=== PATIENT | male | born 1950 | race African-American/Black ===

== ENCOUNTER 2021-04-11 09:35 | Outpatient (CLI) | payer MEDICARE, OTHER | END 2021-04-11 09:36 | disposition home or self-care (01) | LOC: CSHULT 09:35 | PROVIDERS: ATTEND Internal Medicine Nephrology | DX: I13.10 Hypertensive heart and chronic kidney disease without heart failure, with stage 1 through stage 4 chronic kidney disease, or unspecified chronic kidney disease (principal); N18.1 Chronic kidney disease, stage 1; E87.1 Hypo-osmolality and hyponatremia; N40.0 Benign prostatic hyperplasia without lower urinary tract symptoms; R80.9 Proteinuria, unspecified; N39.0 Urinary tract infection, site not specified; I25.10 Atherosclerotic heart disease of native coronary artery without angina pectoris; I73.9 Peripheral vascular disease, unspecified; J44.9 Chronic obstructive pulmonary disease, unspecified; E78.5 Hyperlipidemia, unspecified; M19.90 Unspecified osteoarthritis, unspecified site; D47.3 Essential (hemorrhagic) thrombocythemia; N28.1 Cyst of kidney, acquired | CPT/HCPCS: 76770 ==

== ENCOUNTER 2021-05-18 17:03 | Outpatient (CLI) | payer MEDICARE, OTHER | END 2021-05-18 17:04 | disposition home or self-care (01) | LOC: CSHRAD 17:03 → CSHULT 17:04 | PROVIDERS: ATTEND Internal Medicine | DX: M79.89 Other specified soft tissue disorders (principal); I82.611 Acute embolism and thrombosis of superficial veins of right upper extremity ==

== ENCOUNTER 2021-05-18 17:53 | Observation (INO) | payer OTHER, MEDICARE ==
[2021-05-18 21:04] LABS: #Eosinphils 0.1 10x3/uL (0.0-0.5); #Monocytes 0.3 10x3/uL (0.0-1.1); #Neutrophils 2.8 10x3/uL (1.5-8.4); %Basophils 0.7 % (0.0-2.0); %Eosinophils 1.2 % (0.0-6.0); %Lymphocytes 26.6 % (18.0-47.0); %Neutrophils 64.3 % (40.0-75.0); Hemoglobin 13.8 g/dL (13.5-17.5); Mean Corpuscular HGB CONC 34.1 g/dL (32.0-36.0); Mean Corpuscular Volume 108.6 fl (81.2-95.1); Mean Platelet Volume 9.9 fl (7.4-10.4); Platelet Count 183 10x3/uL (150-450); RBC Distribution Width 13.2 % (11.5-14.5); Red Blood Cell (RBC) Count 3.73 10x6/uL (4.32-5.72); White Blood Cell (WBC) Count 4.3 10x3/uL (3.5-10.5)
[2021-05-18] MEDS ORDERED: Morphine 4 MG/ML VIAL ONE (21:12)
[2021-05-18] MEDS ORDERED: Ondansetron PF 4 MG/2 ML Vial ONE (21:13)
[2021-05-18] MEDS ORDERED: Enoxaparin Sodium 60 MG/0.6 ML SYRINGE ONE (21:13)
[2021-05-18 21:15] LABS: ALT (SGPT) 12 U/L (8-55); AST (SGOT) 19 U/L (5-34); Albumin 3.4 g/dL (3.4-4.8); Alkaline Phosphatase 89 U/L (40-110); Anion Gap 11 mmol/L (10-20); BUN (Urea Nitrogen) 8 mg/dL (8.4-25.7); Bilirubin, Total 0.6 mg/dL (0.2-1.2); Calc. Creatinine Clearance 0 mL/min (70-130); Carbon Dioxide 26 mmol/L (23-31); Chloride 97 mmol/L (98-107); Globulin 3.2 g/dL (2.4-3.5); Glucose 74 mg/dL (83-110); Potassium 4.6 mmol/L (3.5-5.1); Protein, Total 6.6 g/dL (5.8-8.1); Sodium 129 mmol/L (136-145)
[2021-05-18 21:35] LABS: Platelet Morphology Comment Appears Adequate; RBC Morphology Normal
[2021-05-19] MEDS ORDERED: Nicotine 14 MG PATCH ONE (02:03)
[2021-05-19] MEDS ORDERED: Albuterol Sulfate 2.5 mg/3 ml Neb NEB PRN (03:28)
[2021-05-19 04:29] LABS: PTT 36.5 sec (22.0-33.0); Prothrombin Time 11.1 sec (9.5-12.1)
[2021-05-19 04:38] LABS: Anion Gap 13 mmol/L (10-20); BUN (Urea Nitrogen) 9 mg/dL (8.4-25.7); Calc. Creatinine Clearance 0 mL/min (70-130); Carbon Dioxide 24 mmol/L (23-31); Chloride 98 mmol/L (98-107); Glucose 80 mg/dL (83-110); Potassium 4.6 mmol/L (3.5-5.1); Sodium 130 mmol/L (136-145)
[2021-05-19] MEDS ORDERED: HYDROmorphone 2 MG TAB ONE ×3 (04:46→09:51)
[2021-05-19 04:53] LABS: Hemoglobin 14.1 g/dL (13.5-17.5); Mean Corpuscular HGB CONC 34.7 g/dL (32.0-36.0); Mean Corpuscular Hemoglobin 36.9 pg (27.0-33.0); Mean Corpuscular Volume 106.3 fl (81.2-95.1); Mean Platelet Volume 10.4 fl (7.4-10.4); Platelet Count 184 10x3/uL (150-450); RBC Distribution Width 13.5 % (11.5-14.5); Red Blood Cell (RBC) Count 3.82 10x6/uL (4.32-5.72); White Blood Cell (WBC) Count 3.9 10x3/uL (3.5-10.5)
[2021-05-19] MEDS: HYDROmorphone 2 MG TAB PO SCH ×2 (04:59→08:57)
[2021-05-19 05:56] LABS: SARS-CoV-2 NAA Rapid Test Not Detected (NotDetected)
[2021-05-19] MEDS ORDERED: Amlodipine 5 MG TAB ONE (06:18)
[2021-05-19] MEDS ORDERED: Lisinopril 10 MG TAB ONE (06:18)
[2021-05-19] MEDS ORDERED: Budesonide 0.5 MG/2 ML NEB NEB SCH (06:30)
[2021-05-19] MEDS ORDERED: Mometasone 100 MCG/Formoterol 5 MCG 120 PUFF INHALER INH SCH (06:30)
[2021-05-19 06:41] LABS: MDiff Complete? YES
[2021-05-19] MEDS ORDERED: Budesonide 0.5 MG/2 ML NEB ONE (06:43)
[2021-05-19 06:50] LABS: Eosinophils 1 % (0-10); Lymphocytes 23 % (21-51); Monocytes 5 % (0-10); Neutrophil 70 % (42-75)
[2021-05-19 06:52] LABS: Platelet Morphology Comment Appears Adequate; RBC Morphology Normal
[2021-05-19] MEDS ORDERED: cloNIDine 0.1 MG TAB ONE (07:52)
[2021-05-19] MEDS ORDERED: Apixaban 5 MG TAB ONE (07:52)
[2021-05-19] MEDS ORDERED: Aspirin 325 MG TAB ONE (07:53)
[2021-05-19] MEDS ORDERED: Folic Acid 1 MG TAB ONE (07:53)
[2021-05-19] MEDS ORDERED: Gabapentin 300 MG CAP ONE (07:56)
[2021-05-19 08:59] VITALS: BP 163/59
[2021-05-19] MEDS ORDERED: Magnesium Oxide 400 MG TAB PO SCH (09:00)
[2021-05-19] MEDS ORDERED: Methocarbamol 500 MG TAB PO SCH (09:00)
[2021-05-19] MEDS ORDERED: Amlodipine 10 MG TAB PO SCH (09:00)
[2021-05-19] MEDS ORDERED: Apixaban 5 MG TAB PO SCH (09:00)
[2021-05-19] MEDS ORDERED: Lisinopril 20 MG TAB PO SCH (09:00)
[2021-05-19] MEDS ORDERED: Gabapentin 300 MG CAP PO SCH (09:00)
[2021-05-19] MEDS ORDERED: Oxybutynin 5 MG TAB PO SCH (09:00)
[2021-05-19] MEDS ORDERED: Aspirin 325 mg Enteric Coated Tablet PO SCH (09:00)
[2021-05-19] MEDS ORDERED: Metoprolol Tartrate 25 MG TAB PO SCH (09:00)
[2021-05-19] MEDS ORDERED: cloNIDine 0.1 MG TAB PO SCH (09:00)
[2021-05-19] MEDS ORDERED: Folic Acid 1 MG TAB PO SCH (09:00)
[2021-05-19] MEDS ORDERED: Hydroxyurea 500 MG CAP PO SCH (09:00)
[2021-05-19] MEDS ORDERED: HYDROmorphone 2 MG TAB PO SCH (10:00)
[2021-05-19] MEDS ORDERED: Atorvastatin Calcium 10 MG TAB PO SCH (21:00)
== END 2021-05-19 13:00 | disposition home or self-care (01) ==
LOC: CSHERS 17:53 → CSHERHOLD 05-19 03:40 → INTOOBSV 05-19 03:40
PROVIDERS: ADMIT Family Medicine; ATTEND Internal Medicine
DX: I82.621 Acute embolism and thrombosis of deep veins of right upper extremity (principal); G89.4 Chronic pain syndrome; D75.839 Thrombocytosis, unspecified; Z86.73 Personal history of transient ischemic attack (TIA), and cerebral infarction without residual deficits; J44.9 Chronic obstructive pulmonary disease, unspecified; F17.210 Nicotine dependence, cigarettes, uncomplicated; I25.10 Atherosclerotic heart disease of native coronary artery without angina pectoris; Z95.5 Presence of coronary angioplasty implant and graft; I73.9 Peripheral vascular disease, unspecified; Z89.512 Acquired absence of left leg below knee; Z89.611 Acquired absence of right leg above knee; I10 Essential (primary) hypertension; E78.5 Hyperlipidemia, unspecified; N40.0 Benign prostatic hyperplasia without lower urinary tract symptoms; Z79.899 Other long term (current) drug therapy; Z79.82 Long term (current) use of aspirin; Z86.718 Personal history of other venous thrombosis and embolism; Z20.822 Contact with and (suspected) exposure to COVID-19; M79.89 Other specified soft tissue disorders; I82.611 Acute embolism and thrombosis of superficial veins of right upper extremity
CPT/HCPCS: 80048; 80053; 83735; 85025; 85610; 85730; 94640; 94760; 96372; 96374; G0378; J1650; J2270; J2405; J7620; J7626; U0002